=== PATIENT | female | born 1995 ===

== ENCOUNTER 2017-01-15 22:32 | Inpatient (IN) | payer SELFPAY ==
[2017-01-15 23:39] VITALS: BMI 26.5
[2017-01-16] MEDS ORDERED: Sodium Chloride 0.9% 1,000 ML IV STA (00:27)
[2017-01-16] MEDS ORDERED: Ampicillin/Sulbactam 3 GM in Sodium Chloride 0.9% 100 ML IVPB STA (00:28)
[2017-01-16] MEDS ORDERED: Vancomycin 500 mg Inj IVPB STA (00:28)
[2017-01-16] MEDS ORDERED: Morphine 4 mg/ml ISec IVP STA ×2 (00:29→01:36)
[2017-01-16] MEDS ORDERED: Vancomycin 1gm in NS 250ml 1 GM/250 ML BAG IVPB STA (00:35)
[2017-01-16 00:44] LABS: ADD MANUAL DIFF? NO
[2017-01-16 00:52] LABS: BASO # 0.03 K/mm3 (0.0-2.0); BASO % 0.2 % (0.0-3.0); EOS # 0.3 (0.0-0.7); EOS % 1.3 % (1.5-5.0); GRAN # 15.61 (1.4-6.5); GRAN % 83.4 % (50.0-68.0); HEMATOCRIT 35.6 % (36.0-48.0); LYMPH # 1.6 (1.2-3.4); LYMPH % 8.7 % (22.0-35.0); MEAN CORPUSCULAR HEMOGLOBIN 28.9 pg (25.0-35.0); MEAN CORPUSCULAR HGB CONC 33.1 g/dl (31.0-37.0); MEAN PLATELET VOLUME 9.3 fl (7.0-11.0); MONO # 1.2 (0.1-0.6); MONO % 6.4 % (1.0-6.0); PLATELET COUNT 371 10^3/uL (120.0-450.0); WHITE BLOOD COUNT 18.7 10^3/ul (4.5-11.0)
[2017-01-16 00:57] LABS: ALB/GLOB RATIO 1.1 (1.1-1.8); ALKALINE PHOSPHATASE 63 U/L (38-133); ALT/SGPT 23 U/L (7-56); AST/SGOT 27 U/L (15-39); BILIRUBIN,TOTAL 0.5 mg/dL (0.2-1.3); BLOOD UREA NITROGEN 9 mg/dL (7-21); CARBON DIOXIDE 29 mmol/L (21-33); CHLORIDE 102 mmol/L (98-107); GFR AFRICAN-AMERICAN > 60; GLUCOSE,RANDOM 99 mg/dL (70-110); POTASSIUM 3.8 mmol/L (3.6-5.0); SODIUM 138 mmol/L (132-148); TOTAL PROTEIN 7.1 g/dL (5.8-8.3)
--- NOTE | 2017-01-16 01:01 | ED PDOC ---
Arrival/HPI - General Chief Complaint: Breast Problem Time Seen by Provider: 01/16/17 00:27 Historian: Patient - History of Present Illness Narrative History of Present Illness (Text): 01/16/17 01:04 A 21 year old female presents to the emergency department complaining of right breast pain since last week. Patient notes an infection of right breast and pus after draining it. Patient also notes swelling of breast yesterday. Patient reports a subjective fever and taking ibuprofen around 6 in the morning. Patient denies any other complaints at this time. PMD: None Time/Duration: 1 week Symptom Onset: Sudden Symptom Course: Unchanged Activities at Onset: Rest Context: Home Past Medical History - Provider Review Nursing Documentation Reviewed: Yes - Psychiatric Hx Substance Use: No - Anesthesia Hx Anesthesia: No Family/Social History - Physician Review Nursing Documentation Reviewed: Yes Family/Social History: No Known Family HX Smoking Status: Never Smoked Hx Alcohol Use: No Hx Substance Use: No Allergies/Home Meds Allergies/Adverse Reactions: Allergies No Known Allergies Allergy (Verified 01/15/17 23:39) Home Medications: Home Meds Medication Instructions Recorded Confirmed No Known Home Med 01/15/17 01/15/17 Review of Systems - Physician Review All systems were reviewed & negative as marked: Yes - Review of Systems Constitutional: Fevers (subjective) Skin: Other (infection of R breast) Physical Exam Vital Signs Reviewed: Yes Vital Signs Temp Pulse Resp BP Pulse Ox 01/16/17 00:51 102/55 L 01/15/17 23:39 98.5 F 94 H 16 110/76 98 Temperature: Afebrile Blood Pressure: Normal Pulse: Regular Respiratory Rate: Normal Appearance: Positive for: Well-Appearing, Non-Toxic, Comfortable Pain Distress: None Mental Status: Positive for: Alert and Oriented X 3 - Systems Exam Head: Present: Atraumatic, Normocephalic Pupils: Present: PERRL Extroacular Muscles: Present: EOMI Conjunctiva: Present: Normal Mouth: Present: Moist Mucous Membranes Neck: Present: Normal Range of Motion Respiratory/Chest: Present: Clear to Auscultation, Good Air Exchange. No: Respiratory Distress, Accessory Muscle Use Cardiovascular: Present: Regular Rate and Rhythm, Normal S1, S2. No: Murmurs Abdomen: Present: Normal Bowel Sounds. No: Tenderness, Distention, Peritoneal Signs Breast/Axillary: Present: Erythema, Fluctuance ( fluctuance over lateral portion of areola and nipple), Other (warmth; induration of R anterolateral breast nipple; bilateral nipple piercings) Back: Present: Normal Inspection Upper Extremity: Present: Normal Inspection. No: Cyanosis, Edema Lower Extremity: Present: Normal Inspection. No: Edema Neurological: Present: GCS=15, CN II-XII Intact, Speech Normal Skin: Present: Warm, Dry, Normal Color. No: Rashes Psychiatric: Present: Alert, Oriented x 3, Normal Insight, Normal Concentration Medical Decision Making - Lab Interpretations Lab Results: 01/16/17 00:27 Lab Results 01/16/17 00:27: WBC 18.7 H, RBC 4.09, Hgb 11.8 L, Hct 35.6 L, MCV 87.0, MCH 28.9 , MCHC 33.1, RDW 13.0, Plt Count 371, MPV 9.3, Gran % 83.4 H, Lymph % (Auto) 8.7 L, [place] % (Auto) 6.4 H, Eos % (Auto) 1.3 L, Baso % (Auto) 0.2, Gran # 15.61 H, Lymph # 1.6, [place] # 1.2 H, Eos # 0.3, Baso # 0.03 I have reviewed the lab results: Yes - Medication Orders Current Medication Orders: Sodium Chloride (Sodium Chloride 0.9%) 1,000 mls @ 999 mls/hr IV .Q1H1M STA Stop: 01/16/17 01:27 Last Admin: 01/16/17 00:40 Dose: 999 mls/hr Ampicillin Sodium/Sulbactam (Sodium 3 gm/ Sodium Chloride) 100 mls @ 100 mls/ hr IVPB STAT STA PRN Reason: Protocol Stop: 01/16/17 01:27 Vancomycin HCl (Vancomycin 1gm) 1 gm in 250 mls @ 167 mls/hr IVPB STAT STA Stop: 01/16/17 02:04 Discontinued Medications Morphine Sulfate (Morphine) 4 mg IVP STAT STA Stop: 01/16/17 00:30 Last Admin: 01/16/17 00:48 Dose: 4 mg - Scribe Statement The provider has reviewed the documentation as recorded by the Ramona Zapata Provider Scribe Attestation: All medical record entries made by the Scribe were at my direction and personally dictated by me. I have reviewed the chart and agree that the record accurately reflects my personal performance of the history, physical exam, medical decision making, and the department course for this patient. I have also personally directed, reviewed, and agree with the discharge instructions and disposition. Disposition/Present on Arrival - Present on Arrival History of DVT/PE: No History of Uncontrolled Diabetes: No Urinary Catheter: No History of Decub. Ulcer: No History Surgical Site Infection Following: None - Disposition
[2017-01-16] MEDS ORDERED: Albuterol 0.083% Inhal Sol (2.5 mg/3 mL) UD IH PRN (01:35)
[2017-01-16] MEDS ORDERED: Vancomycin 1 g Inj IVPB SCH (01:45)
--- NOTE | 2017-01-16 02:05 | CP.PCM.HP ---
Addendum entered and electronically signed by Noé Nevarez DO 01/16/17 02:19: urine drug screen was ordered after the patient was given 8mg of Morphine in the ER; might be false positive because of that Original Note: <Noé Nevarez - Last Filed: 01/16/17 02:02> History of Present Illness - History of Present Illness History of Present Illness: CC: R Breast Pain This patient is a 21yo F w/ no PMHx who is coming in for a 1d history of R breast pain, with pus draining out. The patient is complaining of a tactile fever, with no other symptoms. breast is exquisitely tender to the touch and even clothing that touches it hurts it. She denies current fevers/chills, DAY, CP , SOB, abdominal pain, N/V/D, dysuria/freq/urg, or lower extremity pain/ swelling. PMhx: None Surg: None Meds: None FamHx: Mom DM, Grandmother with breast and cervical cancer Social: Denies illicit drug use, R nipple piercing years ago, occasional EtOH, not in college, working Allergies: denies Present on Admission - Present on Admission Any Indicators Present on Admission: No History of DVT/PE: No History of Uncontrolled Diabetes: No Urinary Catheter: No Decubitus Ulcer Present: No Past Patient History - Past Social History Smoking Status: Never Smoked - PSYCHIATRIC Hx Substance Use: No - SURGICAL HISTORY Hx Surgeries: No - ANESTHESIA Hx Anesthesia: No Meds Allergies/Adverse Reactions: Allergies Allergy/AdvReac Type Severity Reaction Status Date / Time No Known Allergies Allergy Verified 01/15/17 23:39 Physical Exam - Constitutional Appears: Non-toxic - Head Exam Head Exam: ATRAUMATIC - Eye Exam Eye Exam: EOMI Pupil Exam: PERRL - ENT Exam ENT Exam: Mucous Membranes Moist - Neck Exam Neck exam: Positive for: Full Rom. Negative for: Lymphadenopathy - Respiratory Exam Respiratory Exam: Clear to Auscultation Bilateral, Rales, Rhonchi, Wheezes, NORMAL BREATHING PATTERN Additional comments: W/ female nurse present breast was examined; esquisitely tender to the touch with dried pus on the nipple; nipple piercing on the right, hard and red, skin is extremely tense, could not feel any discrete abscess, however skin is hard to the touch - Cardiovascular Exam Cardiovascular Exam: REGULAR RHYTHM, +S1, +S2 - GI/Abdominal Exam GI & Abdominal Exam: Normal Bowel Sounds, Soft. absent: Tenderness - Rectal Exam Rectal Exam: Deferred - Extremities Exam Extremities exam: Positive for: full ROM, normal inspection. Negative for: calf tenderness, pedal edema, tenderness - Back Exam Back exam: NORMAL INSPECTION. absent: CVA tenderness (L), CVA tenderness (R) - Neurological Exam Neurological exam: Alert, Normal Gait, Oriented x3 - Psychiatric Exam Psychiatric exam: Normal Affect - Skin Skin Exam: Warm Results - Vital Signs Recent Vital Signs: Last Vital Signs Temp 98.5 F 01/15/17 23:39 Pulse 94 H 01/15/17 23:39 Resp 16 01/15/17 23:39 BP 102/55 L 01/16/17 00:51 Pulse Ox 98 01/15/17 23:39 - Labs Result Diagrams: 01/16/17 00:27 01/16/17 00:27 Assessment & Plan - Assessment and Plan (Free Text) Assessment: 21yo F admitted for sepsis 2/2 breast abscess/mastitis Sepsis 2/2 to Breast Abscess/Cellulitis -Breast ultrasound ordered; f/u results -Surgical Consult: Dr. Shields placed; appreciate recs -IV Vanco and Unasyn -Elevated WBC, tachycardia, obvious sign of infection -fluids given -f/u VBG lactate Prophylaxis Heart healthy diet SCD pepcid Case Discussed w/ Dr. Fadi Nevarez PGY1 Night Float Decision To Admit - Pt Status Changed To: Hospital Disposition Of: Inpatient Admission - Admit Certification Admit to Inpatient:: After my assessment, the patient will require hospitalization for at least two midnights. This is because of the severity of symptoms shown, intensity of services needed, and/or the medical risk in this patient being treated as an outpatient. - . Bed Request Type: Med/Surg Admitting Physician: Greg Aponte <Greg Aponte - Last Filed: 01/16/17 03:16> Results - Vital Signs Recent Vital Signs: Last Vital Signs Temp 98.5 F 01/15/17 23:39 Pulse 86 01/16/17 03:14 Resp 18 01/16/17 03:14 BP 104/71 01/16/17 03:14 Pulse Ox 98 01/16/17 03:14 - Labs Result Diagrams: 01/16/17 00:27 01/16/17 00:27 Labs: Laboratory Results - last 24 hr 01/16/17 01/16/17 01:40 01:40 Urine Color Yellow Urine Appearance Sl cloudy Urine pH 6.5 Ur Specific [place] 1.025 Urine Protein Trace H Urine Glucose (UA) Negative Urine Ketones Negative Urine Blood Negative Urine Nitrate Negative Urine Bilirubin Negative Urine Urobilinogen 1.0 H Ur Leukocyte Esterase Trace H Urine RBC 2 - 5 Urine WBC 1 - 3 Ur Epithelial Cells 6 - 8 Amorphous Sediment Moderate Urine Bacteria Large Urine Opiates Screen Negative Urine Methadone Screen Negative Ur Barbiturates Screen Negative Ur Phencyclidine Scrn Negative Ur Amphetamines Screen Negative U Benzodiazepines Scrn Negative U Oth Cocaine Metabols Negative U Cannabinoids Screen Negative Attending/Attestation - Attestation I have personally seen and examined this patient.: Yes I have fully participated in the care of the patient.: Yes I have reviewed all pertinent clinical information: Yes Notes (Text): 01/16/17 03:15 Patient was examined in room # 11 in the ER in presence of nurse Gaiens. Agree with history ,physical examination, assessment and plan. Gives history of anemia as a child.
[2017-01-16] MEDS: Sodium Chloride 0.9% 1,000 ML IV SCH ×2 (02:07→12:55)
[2017-01-16 02:10] LABS: PH,URINE 6.5 (4.7-8.0); URINE BILIRUBIN NEGATIVE (NEGATIVE); URINE BLOOD NEGATIVE (NEGATIVE); URINE GLUCOSE (UA) NEGATIVE (NEGATIVE); URINE KETONE NEGATIVE (NEGATIVE); URINE LEUKOCYTE ESTERASE TRACE Leu/uL (NEGATIVE); URINE PROTEIN TRACE mg/dL (<30 mg/dL)
[2017-01-16 02:11] LABS: URINE APPEARANCE SL CLOUDY (CLEAR); URINE COLOR YELLOW (YELLOW)
[2017-01-16] MEDS: Morphine 4 mg/ml ISec IVP ONE ×2 (02:11→03:07)
[2017-01-16 02:23] LABS: URINE AMORPHOUS SEDIMENT MODERATE; URINE BACTERIA LARGE (NEG)
--- NOTE | 2017-01-16 03:26 | CP.PCM.CON ---
History of Present Illness - History of Present Illness History of Present Illness: General Surgery Consult Re: R Breast cellulitis with draining abscess HPI: 21F presented to the ED c/o R breast pain, swelling, and draining pus x 1 day. + subjective fever. She had a smaller swelling just under the nipple 1 week ago but it popped and she expressed the pus from it and it improved until yesterday. She has never had any issues prior to this. She had her R nipple pierced ~4 years ago. Denies current F/C, SOB, abd pain, N/V/D/C, or dysuria. PMH: Denies PSH: Denies SH: No tobacco or drug use. Occasional EtOH All: NKDA Meds: Denies Review of Systems - Review of Systems All systems: reviewed and no additional remarkable complaints except (as per HPI ) Past Patient History - Past Social History Smoking Status: Never Smoked - PSYCHIATRIC Hx Substance Use: No - SURGICAL HISTORY Hx Surgeries: No - ANESTHESIA Hx Anesthesia: No Meds Allergies/Adverse Reactions: Allergies Allergy/AdvReac Type Severity Reaction Status Date / Time No Known Allergies Allergy Verified 01/15/17 23:39 - Medications Medications: Current Medications Acetaminophen (Tylenol 325mg Tab) 650 mg PO Q6H PRN PRN Reason: Fever >100.4 F Albuterol Sulfate (Albuterol 0.083% Inhal Yuridia (2.5 Mg/3 Ml) Ud) 2.5 mg IH Q2H PRN PRN Reason: Shortness of Breath Famotidine (Pepcid) 20 mg PO BID [facility] Sodium Chloride (Sodium Chloride 0.9%) 1,000 mls @ 100 mls/hr IV .Q10H [facility] Last Admin: 01/16/17 02:07 Dose: 100 mls/hr Vancomycin HCl (Vancomycin 1gm) 1 gm in 250 mls @ 167 mls/hr IVPB Q24H [facility] Ampicillin Sodium/Sulbactam Sodium (Unasyn 1 Gm-0.5 Gm) 1 gm in 100 mls @ 100 mls/hr IVPB Q8H [facility] PRN Reason: Protocol Last Admin: 01/16/17 02:14 Dose: Not Given Ibuprofen (Motrin Tab) 600 mg PO Q6H PRN PRN Reason: Pain, Mild (1-3) Ondansetron HCl (Zofran Inj) 8 mg IVP Q8H PRN PRN Reason: Nausea/Vomiting Physical Exam - Constitutional Appears: Non-toxic, No Acute Distress - Head Exam Head Exam: ATRAUMATIC, NORMOCEPHALIC - Eye Exam Eye Exam: EOMI. absent: Scleral icterus - ENT Exam ENT Exam: Mucous Membranes Moist Additional comments: trachea midline - Neck Exam Neck exam: Positive for: Full Rom - Respiratory Exam Respiratory Exam: NORMAL BREATHING PATTERN. absent: Respiratory Distress Additional comments: R Breast: nipple and surrounding area of TTP with erythema ~12cm. dependent portion of breast with more edema. + induration. No expressed pus due to TTP. Nipple piercing. small hole in the areolar tissue with small amount of dry pus. - Cardiovascular Exam Cardiovascular Exam: RRR, +S1, +S2 - GI/Abdominal Exam GI & Abdominal Exam: Soft. absent: Distended - Rectal Exam Rectal Exam: Deferred - Extremities Exam Extremities exam: Positive for: normal capillary refill. Negative for: calf tenderness, pedal edema - Back Exam Back exam: absent: CVA tenderness (L), CVA tenderness (R) - Neurological Exam Neurological exam: Alert, Oriented x3 - Psychiatric Exam Psychiatric exam: Normal Affect, Normal Mood - Skin Skin Exam: Dry, Warm Results - Vital Signs Recent Vital Signs: Last Vital Signs Temp 98.5 F 01/15/17 23:39 Pulse 86 01/16/17 03:14 Resp 18 01/16/17 03:14 BP 104/71 01/16/17 03:14 Pulse Ox 98 01/16/17 03:14 - Labs Result Diagrams: 01/16/17 00:27 01/16/17 00:27 Labs: Laboratory Results - last 24 hr 01/16/17 01/16/17 01:40 01:40 Urine Color Yellow Urine Appearance Sl cloudy Urine pH 6.5 Ur Specific [place] 1.025 Urine Protein Trace H Urine Glucose (UA) Negative Urine Ketones Negative Urine Blood Negative Urine Nitrate Negative Urine Bilirubin Negative Urine Urobilinogen 1.0 H Ur Leukocyte Esterase Trace H Urine RBC 2 - 5 Urine WBC 1 - 3 Ur Epithelial Cells 6 - 8 Amorphous Sediment Moderate Urine Bacteria Large Urine Opiates Screen Negative Urine Methadone Screen Negative Ur Barbiturates Screen Negative Ur Phencyclidine Scrn Negative Ur Amphetamines Screen Negative U Benzodiazepines Scrn Negative U Oth Cocaine Metabols Negative U Cannabinoids Screen Negative - Imaging and Cardiology US - breast Status: Image reviewed by me Assessment & Plan - Assessment and Plan (Free Text) Assessment: 21F with R breast cellulitis and abscess Plan: IV abx Analgesia F/U R breast US Warm Compress to R breast Will D/W Dr. Cornelius Sevilla PGY3
--- NOTE | 2017-01-16 04:14 | US ---
EXAM: US Right Breast Complete CLINICAL HISTORY: 21 years old, female; Pain; Breast pain; Right; Additional info: Swelling/abscess TECHNIQUE: Static sonographic images of the right breast with image documentation utilizing a linear transducer. Imaging was obtained in all four quadrants, retroareolar region, and the axillae. EXAM DATE/TIME: 01/16/2017 2:00 AM COMPARISON: No relevant prior studies available. FINDINGS: There is a 4.8 x 2.2 x 4.7 cm hypoechoic heterogeneous structure at 9:00 at the areola. There is some vascularity demonstrated peripherally although no significant flow internally. The central avascularity is a finding typically seen with hematoma or abscess. The peripheral flow favors the latter. IMPRESSION: Heterogeneous hypoechoic structure at the areola 9:00 with vascularity pattern suggesting abscess however followup is recommended to ensure complete resolution.
[2017-01-16 04:55] VITALS: RESP 20
[2017-01-16 07:29] LABS: ADD MANUAL DIFF? NO
[2017-01-16 07:32] LABS: BASO # 0.02 K/mm3 (0.0-2.0); BASO % 0.1 % (0.0-3.0); EOS # 0.3 (0.0-0.7); EOS % 1.8 % (1.5-5.0); GRAN # 14.05 (1.4-6.5); HEMATOCRIT 35.5 % (36.0-48.0); LYMPH % 11.6 % (22.0-35.0); MEAN CORPUSCULAR HEMOGLOBIN 28.4 pg (25.0-35.0); MEAN CORPUSCULAR HGB CONC 32.7 g/dl (31.0-37.0); MEAN PLATELET VOLUME 9.6 fl (7.0-11.0); MONO % 5.5 % (1.0-6.0); PLATELET COUNT 372 10^3/uL (120.0-450.0); RED CELL DISTRIBUTION WIDTH 13.1 % (11.5-14.5); WHITE BLOOD COUNT 17.3 10^3/ul (4.5-11.0)
[2017-01-16 07:44] LABS: ALB/GLOB RATIO 1.1 (1.1-1.8); ALKALINE PHOSPHATASE 60 U/L (38-133); ALT/SGPT 23 U/L (7-56); AST/SGOT 38 U/L (15-39); BILIRUBIN,TOTAL 0.4 mg/dL (0.2-1.3); BLOOD UREA NITROGEN 7 mg/dL (7-21); CALCIUM 8.5 mg/dL (8.4-10.5); CARBON DIOXIDE 26 mmol/L (21-33); CHLORIDE 106 mmol/L (98-107); CHOLESTEROL 76 mg/dL (130-200); GFR AFRICAN-AMERICAN > 60; GLUCOSE,RANDOM 101 mg/dL (70-110); POTASSIUM 3.6 mmol/L (3.6-5.0); SODIUM 141 mmol/L (132-148); TOTAL PROTEIN 6.7 g/dL (5.8-8.3)
[2017-01-16 08:28] LABS: IRON < 10 ug/dL (45-180)
[2017-01-16] MEDS ORDERED: Propofol 10 mg/ml Inj (20 ML) ONE (09:14)
[2017-01-16] MEDS ORDERED: Lidocaine 2% Inj (20ml) ONE (09:14)
[2017-01-16] MEDS ORDERED: Midazolam 2 MG/2 ML VIAL ONE (09:14)
[2017-01-16] MEDS ORDERED: Lactated Ringer's 1,000 ML IV SCH (09:59)
[2017-01-16] MEDS ORDERED: HYDROmorphone 0.5 mg/0.5 ml ISec IVP PRN ×2 (09:59→10:01)
--- NOTE | 2017-01-16 09:59 | PCM.SURG1 ---
Surgeon's Initial Post Op Note - Surgeon's Notes Surgeon: Dr. Shields Sales Ledger Clerk: Marsha Monte PGY1 Type of Anesthesia: General Endo Anesthesia Administered By: Anshu Pre-Operative Diagnosis: Right breast abscess Operative Findings: same Post-Operative Diagnosis: same Operation Performed: Incision and drainage of Right breast abscess Specimen/Specimens Removed: abscess 50cc Estimated Blood Loss: EBL {In ML}: 10 Blood Products Given: N/A Drains Used: No Drains Post-Op Condition: Good Date of Surgery/Procedure: 01/16/17 Time of Surgery/Procedure: 09:59
[2017-01-16] MEDS ORDERED: Oxycodone/Acetaminophen 2.5/325 mg Tab PO PRN (10:01)
[2017-01-16] MEDS: Vancomycin 1gm in NS 250ml 1 GM/250 ML BAG IVPB SCH ×2 (11:54→21:31)
[2017-01-16 12:15] LABS: FOLATE 9.4 ng/mL
--- NOTE | 2017-01-16 15:53 | CP.PCM.CON ---
History of Present Illness - History of Present Illness History of Present Illness: 21 year old female with no significant past medical history came complaining of pain and swelling on her right breast associated with drainage of pus. She noted some swelling a few days ago and noted some pus coming out, then the swelling got worse. She denies specific trauma, no animal contacts or insect bites, no fever or chills, no nausea or vomiting, no headache or dizziness, no SOB, no cough or colds, no diarrhea, no dysuria. Yesterday, I and D was done and pus was sent for cultures. Infectious Diseases consult is requested for antibiotic management. Review of Systems - Review of Systems All systems: reviewed and no additional remarkable complaints except (as per HPI ) Past Patient History - Past Social History Smoking Status: Never Smoked - CARDIAC Hx Cardiac Disorders: No - PULMONARY Hx Respiratory Disorders: No - NEUROLOGICAL Hx Neurological Disorder: No - HEENT Hx HEENT Problems: No - RENAL Hx Chronic Kidney Disease: No - ENDOCRINE/METABOLIC Hx Endocrine Disorders: No - HEMATOLOGICAL/ONCOLOGICAL Hx Blood Transfusions: No Hx Blood Transfusion Reaction: No - INTEGUMENTARY Hx Dermatological Problems: No - MUSCULOSKELETAL/RHEUMATOLOGICAL Hx Musculoskeletal Disorders: No Hx Falls: No - GASTROINTESTINAL Hx Gastrointestinal Disorders: No - GENITOURINARY/GYNECOLOGICAL Hx Genitourinary Disorders: No - PSYCHIATRIC Hx Psychophysiologic Disorder: No - SURGICAL HISTORY Hx Surgeries: No - ANESTHESIA Hx Anesthesia Reactions: No Hx Malignant Hyperthermia: No Meds Allergies/Adverse Reactions: Allergies Allergy/AdvReac Type Severity Reaction Status Date / Time No Known Allergies Allergy Verified 01/15/17 23:39 - Medications Medications: Current Medications Acetaminophen (Tylenol 325mg Tab) 650 mg PO Q6H PRN PRN Reason: Fever >100.4 F Albuterol Sulfate (Albuterol 0.083% Inhal Yuridia (2.5 Mg/3 Ml) Ud) 2.5 mg IH Q2H PRN PRN Reason: Shortness of Breath Famotidine (Pepcid) 20 mg PO BID [facility] Sodium Chloride (Sodium Chloride 0.9%) 1,000 mls @ 100 mls/hr IV .Q10H [facility] Last Admin: 01/16/17 02:07 Dose: 100 mls/hr Vancomycin HCl (Vancomycin 1gm) 1 gm in 250 mls @ 167 mls/hr IVPB Q12 [facility] PRN Reason: Protocol Ampicillin Sodium/Sulbactam Sodium (Unasyn 1 Gm-0.5 Gm) 1 gm in 100 mls @ 100 mls/hr IVPB Q6 [facility] PRN Reason: Protocol Ibuprofen (Motrin Tab) 600 mg PO Q6H PRN PRN Reason: Pain, Mild (1-3) Ondansetron HCl (Zofran Inj) 8 mg IVP Q8H PRN PRN Reason: Nausea/Vomiting Physical Exam - Constitutional Appears: Non-toxic, No Acute Distress - Head Exam Head Exam: NORMAL INSPECTION - ENT Exam ENT Exam: Mucous Membranes Moist - Neck Exam Neck exam: Negative for: Lymphadenopathy, Meningismus - Respiratory Exam Respiratory Exam: Decreased Breath Sounds - Cardiovascular Exam Cardiovascular Exam: +S1, +S2 - GI/Abdominal Exam GI & Abdominal Exam: Soft. absent: Tenderness Results - Vital Signs Recent Vital Signs: Last Vital Signs Temp 98.2 F 01/16/17 07:51 Pulse 84 01/16/17 07:51 Resp 20 01/16/17 07:51 BP 120/80 01/16/17 07:51 Pulse Ox 97 01/16/17 07:51 - Labs Result Diagrams: 01/16/17 07:00 01/16/17 07:00 Labs: Laboratory Results - last 24 hr 01/16/17 01/16/17 01/16/17 01:40 01:40 07:00 WBC 17.3 H RBC 4.08 Hgb 11.6 L Hct 35.5 L MCV 87.0 MCH 28.4 MCHC 32.7 RDW 13.1 Plt Count 372 MPV 9.6 Gran % 81.0 H Lymph % (Auto) 11.6 L [place] % (Auto) 5.5 Eos % (Auto) 1.8 Baso % (Auto) 0.1 Gran # 14.05 H Lymph # 2.0 [place] # 1.0 H Eos # 0.3 Baso # 0.02 Sodium Potassium Chloride Carbon Dioxide Anion Gap BUN Creatinine Est GFR ( Amer) Est GFR (Non-Af Amer) Random Glucose Calcium Total Bilirubin AST ALT Alkaline Phosphatase Total Protein Albumin Globulin Albumin/Globulin Ratio Triglycerides Cholesterol HDL Cholesterol Urine Color Yellow Urine Appearance Sl cloudy Urine pH 6.5 Ur Specific [place] 1.025 Urine Protein Trace H Urine Glucose (UA) Negative Urine Ketones Negative Urine Blood Negative Urine Nitrate Negative Urine Bilirubin Negative Urine Urobilinogen 1.0 H Ur Leukocyte Esterase Trace H Urine RBC 2 - 5 Urine WBC 1 - 3 Ur Epithelial Cells 6 - 8 Amorphous Sediment Moderate Urine Bacteria Large Urine Opiates Screen Negative Urine Methadone Screen Negative Ur Barbiturates Screen Negative Ur Phencyclidine Scrn Negative Ur Amphetamines Screen Negative U Benzodiazepines Scrn Negative U Oth Cocaine Metabols Negative U Cannabinoids Screen Negative 01/16/17 07:00 WBC RBC Hgb Hct MCV MCH MCHC RDW Plt Count MPV Gran % Lymph % (Auto) [place] % (Auto) Eos % (Auto) Baso % (Auto) Gran # Lymph # [place] # Eos # Baso # Sodium 141 Potassium 3.6 Chloride 106 Carbon Dioxide 26 Anion Gap 13 BUN 7 Creatinine 0.6 Est GFR ( Amer) > 60 Est GFR (Non-Af Amer) > 60 Random Glucose 101 Calcium 8.5 Total Bilirubin 0.4 AST 38 ALT 23 Alkaline Phosphatase 60 Total Protein 6.7 Albumin 3.4 Globulin 3.2 Albumin/Globulin Ratio 1.1 Triglycerides 31 L Cholesterol 76 L HDL Cholesterol 30 Urine Color Urine Appearance Urine pH Ur Specific [place] Urine Protein Urine Glucose (UA) Urine Ketones Urine Blood Urine Nitrate Urine Bilirubin Urine Urobilinogen Ur Leukocyte Esterase Urine RBC Urine WBC Ur Epithelial Cells Amorphous Sediment Urine Bacteria Urine Opiates Screen Urine Methadone Screen Ur Barbiturates Screen Ur Phencyclidine Scrn Ur Amphetamines Screen U Benzodiazepines Scrn U Oth Cocaine Metabols U Cannabinoids Screen Assessment & Plan - Assessment and Plan (Free Text) Plan: Assesssment Sepsis due to right breast breast abscess S/P I and D POD #1 Plan started patient on Vancomycin and Unasyn pending blood and wound cx will get HIV test because of the patient's age will monitor clinically discussed with Dr. Lopez
[2017-01-17] MEDS ORDERED: Vancomycin 1gm in NS 250ml IVPB SCH (02:00)
[2017-01-17] MEDS: Sodium Chloride 0.9% 1,000 ML IV SCH (03:25)
[2017-01-17 08:01] LABS: ADD MANUAL DIFF? NO
[2017-01-17 08:02] VITALS: TEMP 98.4
[2017-01-17 08:14] LABS: BASO # 0.03 K/mm3 (0.0-2.0); BASO % 0.2 % (0.0-3.0); EOS # 0.2 (0.0-0.7); EOS % 1.9 % (1.5-5.0); GRAN # 9.96 (1.4-6.5); GRAN % 79.3 % (50.0-68.0); HEMATOCRIT 33.5 % (36.0-48.0); LYMPH # 1.7 (1.2-3.4); LYMPH % 13.2 % (22.0-35.0); MEAN CELL VOLUME 86.8 fL (80.0-105.0); MEAN CORPUSCULAR HEMOGLOBIN 28.5 pg (25.0-35.0); MEAN CORPUSCULAR HGB CONC 32.8 g/dl (31.0-37.0); MEAN PLATELET VOLUME 9.4 fl (7.0-11.0); MONO # 0.7 (0.1-0.6); MONO % 5.4 % (1.0-6.0); PLATELET COUNT 372 10^3/uL (120.0-450.0); WHITE BLOOD COUNT 12.6 10^3/ul (4.5-11.0)
[2017-01-17 08:20] LABS: ALKALINE PHOSPHATASE 60 U/L (38-133); ALT/SGPT 24 U/L (7-56); AST/SGOT 27 U/L (15-39); BILIRUBIN,TOTAL 0.6 mg/dL (0.2-1.3); BLOOD UREA NITROGEN 4 mg/dL (7-21); CALCIUM 8.7 mg/dL (8.4-10.5); CARBON DIOXIDE 27 mmol/L (21-33); CHLORIDE 105 mmol/L (98-107); GFR AFRICAN-AMERICAN > 60; GLUCOSE,RANDOM 82 mg/dL (70-110); POTASSIUM 3.4 mmol/L (3.6-5.0); SODIUM 139 mmol/L (132-148); TOTAL PROTEIN 6.5 g/dL (5.8-8.3)
[2017-01-17] MEDS ORDERED: Potassium Chloride 20 mEq ER Tab PO ONE (08:29)
--- NOTE | 2017-01-17 08:33 | CP.PCM.PN ---
Subjective - Date & Time of Evaluation Date of Evaluation: 01/17/17 Time of Evaluation: 08:30 - Subjective Subjective: Surgery for Dr. Shields Pt s&e. PT underwent I & D of R breast yesterday. TOlerated it well. Dressing changed this AM. No bleeding. Tolerating diet. + amb. + void. Denies F/C/n/V/D/ Cp/SOB. Pain controlled. Objective - Vital Signs/Intake and Output Vital Signs (last 24 hours): Temp Pulse Resp BP Pulse Ox 98.4 F 73 20 99/59 L 98 01/17/17 08:01 01/17/17 08:01 01/17/17 08:01 01/17/17 08:01 01/17/17 08:01 Intake and Output: 01/17/17 01/17/17 06:59 18:59 Intake Total 2200 Balance 2200 - Medications Medications: Current Medications Acetaminophen (Tylenol 325mg Tab) 650 mg PO Q6H PRN PRN Reason: Fever >100.4 F Albuterol Sulfate (Albuterol 0.083% Inhal Yuridia (2.5 Mg/3 Ml) Ud) 2.5 mg IH Q2H PRN PRN Reason: Shortness of Breath Famotidine (Pepcid) 20 mg PO BID [facility] Last Admin: 01/16/17 19:33 Dose: 20 mg Hydromorphone HCl (Dilaudid) 0.5 mg IVP Q4H PRN PRN Reason: Pain, severe (8-10) Sodium Chloride (Sodium Chloride 0.9%) 1,000 mls @ 100 mls/hr IV .Q10H [facility] Last Admin: 01/17/17 03:25 Dose: 100 mls/hr Vancomycin HCl (Vancomycin 1gm) 1 gm in 250 mls @ 167 mls/hr IVPB Q12 [facility] PRN Reason: Protocol Last Admin: 01/16/17 21:31 Dose: 167 mls/hr Ampicillin Sodium/Sulbactam Sodium (Unasyn 1 Gm-0.5 Gm) 1 gm in 100 mls @ 100 mls/hr IVPB Q6 [facility] PRN Reason: Protocol Last Admin: 01/17/17 05:06 Dose: 100 mls/hr Ibuprofen (Motrin Tab) 600 mg PO Q6H PRN PRN Reason: Pain, Mild (1-3) Ondansetron HCl (Zofran Inj) 8 mg IVP Q8H PRN PRN Reason: Nausea/Vomiting Oxycodone/Acetaminophen (Percocet 2.5/325 Mg Tab) 2 tab PO Q4H PRN PRN Reason: Pain, moderate (4-7) Potassium Chloride (K-Dur 20 Meq Er Tab) 20 meq PO ONCE ONE Stop: 01/17/17 08:30 - Labs Labs: 01/17/17 07:00 01/17/17 07:00 - Constitutional Appears: No Acute Distress - Head Exam Head Exam: ATRAUMATIC, NORMAL INSPECTION, NORMOCEPHALIC - Eye Exam Eye Exam: EOMI, Normal appearance, PERRL Pupil Exam: NORMAL ACCOMODATION, PERRL - ENT Exam ENT Exam: Mucous Membranes Moist, Normal Exam - Neck Exam Neck Exam: Full ROM, Normal Inspection. absent: Lymphadenopathy - Respiratory Exam Respiratory Exam: Clear to Ausculation Bilateral, NORMAL BREATHING PATTERN - Cardiovascular Exam Cardiovascular Exam: REGULAR RHYTHM, +S1, +S2. absent: Murmur - GI/Abdominal Exam GI & Abdominal Exam: Soft, Normal Bowel Sounds. absent: Tenderness - Extremities Exam Extremities Exam: Full ROM, Normal Capillary Refill, Normal Inspection. absent : Joint Swelling, Pedal Edema - Back Exam Back Exam: NORMAL INSPECTION - Neurological Exam Neurological Exam: Alert, Awake, CN II-XII Intact, Normal Gait, Oriented x3 - Psychiatric Exam Psychiatric exam: Normal Affect, Normal Mood - Skin Skin Exam: Erythema, Warm Additional comments: R breast 2cm incision . Packing taken out. Dressing changed. TTP. Erythema improving Assessment and Plan - Assessment and Plan (Free Text) Assessment: POD 1 I & D of R breast for abscess : improving -Dressing change PRN -ABX -WBC trending down -Possibly change ABX to PO to send her home. WIll MOIRA Shields
[2017-01-17] MEDS: Vancomycin 1gm in NS 250ml 1 GM/250 ML BAG IVPB SCH (09:41)
--- NOTE | 2017-01-17 11:55 | CP.PCM.PN ---
<Stephon Herrera - Last Filed: 01/17/17 11:57> Subjective - Date & Time of Evaluation Date of Evaluation: 01/17/17 Time of Evaluation: 11:50 - Subjective Subjective: Medicine progress note. Attending: Dr. Lopez Pt seen and examined at bedside. No acute distress. No events overnight. Pt feeling better, but on verge of leavin AMA. Objective - Vital Signs/Intake and Output Vital Signs (last 24 hours): Temp Pulse Resp BP Pulse Ox 98.4 F 73 20 99/59 L 98 01/17/17 08:01 01/17/17 08:01 01/17/17 08:01 01/17/17 08:01 01/17/17 08:01 Intake and Output: 01/17/17 01/17/17 06:59 18:59 Intake Total 2200 Balance 2200 - Medications Medications: Current Medications Acetaminophen (Tylenol 325mg Tab) 650 mg PO Q6H PRN PRN Reason: Fever >100.4 F Albuterol Sulfate (Albuterol 0.083% Inhal Yuridia (2.5 Mg/3 Ml) Ud) 2.5 mg IH Q2H PRN PRN Reason: Shortness of Breath Famotidine (Pepcid) 20 mg PO BID [facility] Last Admin: 01/17/17 09:37 Dose: 20 mg Hydromorphone HCl (Dilaudid) 0.5 mg IVP Q4H PRN PRN Reason: Pain, severe (8-10) Sodium Chloride (Sodium Chloride 0.9%) 1,000 mls @ 100 mls/hr IV .Q10H [facility] Last Admin: 01/17/17 03:25 Dose: 100 mls/hr Vancomycin HCl (Vancomycin 1gm) 1 gm in 250 mls @ 167 mls/hr IVPB Q12 [facility] PRN Reason: Protocol Last Admin: 01/17/17 09:41 Dose: 167 mls/hr Ampicillin Sodium/Sulbactam Sodium (Unasyn 1 Gm-0.5 Gm) 1 gm in 100 mls @ 100 mls/hr IVPB Q6 [facility] PRN Reason: Protocol Last Admin: 01/17/17 05:06 Dose: 100 mls/hr Ibuprofen (Motrin Tab) 600 mg PO Q6H PRN PRN Reason: Pain, Mild (1-3) Ondansetron HCl (Zofran Inj) 8 mg IVP Q8H PRN PRN Reason: Nausea/Vomiting Oxycodone/Acetaminophen (Percocet 2.5/325 Mg Tab) 2 tab PO Q4H PRN PRN Reason: Pain, moderate (4-7) - Labs Labs: 01/17/17 07:00 01/17/17 07:00 - Constitutional Appears: Non-toxic, No Acute Distress - Head Exam Head Exam: ATRAUMATIC, NORMAL INSPECTION, NORMOCEPHALIC - Eye Exam Eye Exam: EOMI - ENT Exam ENT Exam: Mucous Membranes Moist - Neck Exam Neck Exam: Full ROM, Normal Inspection - Respiratory Exam Respiratory Exam: NORMAL BREATHING PATTERN. absent: Respiratory Distress - Cardiovascular Exam Cardiovascular Exam: +S1, +S2 - GI/Abdominal Exam GI & Abdominal Exam: Soft, Normal Bowel Sounds. absent: Tenderness - Extremities Exam Extremities Exam: Full ROM, Normal Inspection - Back Exam Back Exam: NORMAL INSPECTION - Neurological Exam Neurological Exam: Alert, Awake, Oriented x3 - Psychiatric Exam Psychiatric exam: Normal Affect, Normal Mood - Skin Skin Exam: Dry, Intact, Normal Color, Warm Additional comments: Beast incision, dressing changed. TTP. Minimal erythema. Assessment and Plan - Assessment and Plan (Free Text) Assessment: This is a 21yo female admitted for sepsis 2/2 breast abscess/mastitis Sepsis 2/2 to Breast Abscess/Cellulitis -Breast ultrasound ordered; f/u results -showed abscess on U/S -Surgical Consult: Dr. Shields placed; appreciate recs -pt s/p I/D, dressing changed today, clinically improving. -IV Vanco and Unasyn -f/u anaerobic culture results -f/u sx recs. GI/DVT Prophylaxis Heart healthy diet SCD pepcid discussed with Dr. Lopez <Al Lopez - Last Filed: 01/18/17 08:24> Objective - Vital Signs/Intake and Output Vital Signs (last 24 hours): Temp Pulse Resp BP Pulse Ox 98.4 F 75 20 112/75 96 01/17/17 16:00 01/17/17 16:00 01/17/17 16:00 01/17/17 16:00 01/17/17 16:00 - Labs Labs: 01/17/17 07:00 01/17/17 07:00 Attending/Attestation - Attestation I have personally seen and examined this patient.: Yes I have fully participated in the care of the patient.: Yes I have reviewed all pertinent clinical information, including history, physical exam and plan: Yes Notes (Text): 01/17/17 21 year old female who was admitted for breast cellulitis/abscess. She was started on iv antibiotics and seen by surgery and ID. She is s/p IandD. Cultures were pending. She was examined with female nurse digital strategy director this morning. Packing was removed earlier this morning. She expressed wishes to be discharged home. We explained cutlures were pending. Leukocytosis improved. She reports chronic mild anemia and was advised to follow up with pmd. Potassium was repleted for hypokalemia. She was debating to sign out AMA during the day. After discussion with ID she was written script for augmentin and doxycycline in case she signs out AMA. Apparently she signed out AMA later in the evening (see nursing note and house doctor note). Al Lopez MD Hospitalist.
[2017-01-17 12:10] LABS: FREE T4 1.73 ng/dL (0.78-2.19)
[2017-01-17 12:24] LABS: THYROID STIMULATING HORMONE 0.73 mIU/mL (0.46-4.68)
--- NOTE | 2017-01-17 13:46 | CP.PCM.PN ---
Subjective - Date & Time of Evaluation Date of Evaluation: 01/17/17 Time of Evaluation: 12:15 - Subjective Subjective: Patient is feeling better, no fevers overnight, less pain in the right breast. Objective - Vital Signs/Intake and Output Vital Signs (last 24 hours): Temp Pulse Resp BP Pulse Ox 98.4 F 73 20 99/59 L 98 01/17/17 08:01 01/17/17 08:01 01/17/17 08:01 01/17/17 08:01 01/17/17 08:01 Intake and Output: 01/17/17 01/17/17 06:59 18:59 Intake Total 2200 Balance 2200 - Medications Medications: Current Medications Acetaminophen (Tylenol 325mg Tab) 650 mg PO Q6H PRN PRN Reason: Fever >100.4 F Albuterol Sulfate (Albuterol 0.083% Inhal Yuridia (2.5 Mg/3 Ml) Ud) 2.5 mg IH Q2H PRN PRN Reason: Shortness of Breath Famotidine (Pepcid) 20 mg PO BID [facility] Last Admin: 01/17/17 09:37 Dose: 20 mg Hydromorphone HCl (Dilaudid) 0.5 mg IVP Q4H PRN PRN Reason: Pain, severe (8-10) Sodium Chloride (Sodium Chloride 0.9%) 1,000 mls @ 100 mls/hr IV .Q10H [facility] Last Admin: 01/17/17 03:25 Dose: 100 mls/hr Vancomycin HCl (Vancomycin 1gm) 1 gm in 250 mls @ 167 mls/hr IVPB Q12 [facility] PRN Reason: Protocol Last Admin: 01/17/17 09:41 Dose: 167 mls/hr Ampicillin Sodium/Sulbactam Sodium (Unasyn 1 Gm-0.5 Gm) 1 gm in 100 mls @ 100 mls/hr IVPB Q6 [facility] PRN Reason: Protocol Last Admin: 01/17/17 05:06 Dose: 100 mls/hr Ibuprofen (Motrin Tab) 600 mg PO Q6H PRN PRN Reason: Pain, Mild (1-3) Ondansetron HCl (Zofran Inj) 8 mg IVP Q8H PRN PRN Reason: Nausea/Vomiting Oxycodone/Acetaminophen (Percocet 2.5/325 Mg Tab) 2 tab PO Q4H PRN PRN Reason: Pain, moderate (4-7) - Labs Labs: 01/17/17 07:00 01/17/17 07:00 - Constitutional Appears: Non-toxic, No Acute Distress - Head Exam Head Exam: NORMAL INSPECTION - Neck Exam Neck Exam: absent: Meningismus - Respiratory Exam Respiratory Exam: Decreased Breath Sounds - Cardiovascular Exam Cardiovascular Exam: +S1, +S2 - GI/Abdominal Exam GI & Abdominal Exam: Soft. absent: Tenderness Assessment and Plan - Assessment and Plan (Free Text) Plan: Assesssment Sepsis due to right breast breast abscess S/P I and D POD #2 Plan continue Vancomycin and Unasyn day 2 pending final blood and wound cx will get HIV test because of the patient's age will continue to monitor clinically discussed with Dr. Lopez
[2017-01-17 16:34] VITALS: BP 112/75; PULSE 75; O2SAT 96
--- NOTE | 2017-01-17 19:17 | CP.PCM.PN ---
<Noé Ramsay - Last Filed: 01/17/17 19:15> Subjective - Date & Time of Evaluation Date of Evaluation: 01/17/17 Time of Evaluation: 19:15 - Subjective Subjective: Pt wished to sign out AMA becuase she was mad at the care she was receiving and felt s he did not need to stay AMA form was filled out and patient was advised of possible risks; including , permanent disfugurement, bacteremia, and sepsis The patient had prescriptions for her antibiotics already She was advised to follow up within the week with the surgeon who drained her breast abscess and with the community clinic here for regular health screenings as well All questions were answered. Patients vital signs were stable and patient is competent to sign out AMA Dr. Noé Ramsay PGY1 Night Float Objective - Vital Signs/Intake and Output Vital Signs (last 24 hours): Temp Pulse Resp BP Pulse Ox 98.4 F 75 20 112/75 96 01/17/17 16:00 01/17/17 16:00 01/17/17 16:00 01/17/17 16:00 01/17/17 16:00 Intake and Output: 01/17/17 01/18/17 18:59 06:59 Intake Total 420 Balance 420 - Medications Medications: Current Medications Acetaminophen (Tylenol 325mg Tab) 650 mg PO Q6H PRN PRN Reason: Fever >100.4 F Albuterol Sulfate (Albuterol 0.083% Inhal Yuridia (2.5 Mg/3 Ml) Ud) 2.5 mg IH Q2H PRN PRN Reason: Shortness of Breath Famotidine (Pepcid) 20 mg PO BID [facility] Last Admin: 01/17/17 17:15 Dose: 20 mg Hydromorphone HCl (Dilaudid) 0.5 mg IVP Q4H PRN PRN Reason: Pain, severe (8-10) Sodium Chloride (Sodium Chloride 0.9%) 1,000 mls @ 100 mls/hr IV .Q10H [facility] Last Admin: 01/17/17 03:25 Dose: 100 mls/hr Vancomycin HCl (Vancomycin 1gm) 1 gm in 250 mls @ 167 mls/hr IVPB Q12 [facility] PRN Reason: Protocol Last Admin: 01/17/17 09:41 Dose: 167 mls/hr Ampicillin Sodium/Sulbactam Sodium (Unasyn 1 Gm-0.5 Gm) 1 gm in 100 mls @ 100 mls/hr IVPB Q6 [facility] PRN Reason: Protocol Last Admin: 01/17/17 17:16 Dose: 100 mls/hr Ibuprofen (Motrin Tab) 600 mg PO Q6H PRN PRN Reason: Pain, Mild (1-3) Ondansetron HCl (Zofran Inj) 8 mg IVP Q8H PRN PRN Reason: Nausea/Vomiting Oxycodone/Acetaminophen (Percocet 2.5/325 Mg Tab) 2 tab PO Q4H PRN PRN Reason: Pain, moderate (4-7) - Labs Labs: 01/17/17 07:00 01/17/17 07:00 <Greg Aponte - Last Filed: 01/17/17 20:30> Objective - Vital Signs/Intake and Output Vital Signs (last 24 hours): Temp Pulse Resp BP Pulse Ox 98.4 F 75 20 112/75 96 01/17/17 16:00 01/17/17 16:00 01/17/17 16:00 01/17/17 16:00 01/17/17 16:00 Intake and Output: 01/17/17 01/18/17 18:59 06:59 Intake Total 420 Balance 420 - Labs Labs: 01/17/17 07:00 01/17/17 07:00 Attending/Attestation - Attestation I have personally seen and examined this patient.: No I have fully participated in the care of the patient.: Yes I have reviewed all pertinent clinical information, including history, physical exam and plan: Yes Notes (Text): 01/17/17 20:28 DISCHARGE DIAGNOSIS:Left against medical advice. Non complaint. Breast abscess. Cellulitis breast . Borderline anemia. Leukocytosis.
--- NOTE | 2017-01-18 08:04 | OP ---
PROCEDURE DATE: 01/16/2017 SURGEON: Dr. Shields RECREATION ATTENDANT SUPERVISOR: Dr. Monte ANESTHESIA: General, Dr. Brasher. PREOPERATIVE DIAGNOSIS: Right breast abscess. POSTOPERATIVE DIAGNOSIS: Right breast abscess. PROCEDURE: Incision and drainage of right breast abscess. DESCRIPTION OF OPERATION: With the patient in the supine position under adequate general anesthesia, the right breast was prepped and draped in the usual sterile manner. The patient had a nipple pierc ing which was removed. There was a large fluctuant mass in the lower outer quadrant of the right dory ast and approximately 20 mL of pus was first aspirated from this area. This was sent for culture. I ncision was then made along the areolar margin in the lower outer quadrant and additional purulent fl uid was drained, approximately 50 mL altogether. Loculations were broken up within the cavity and a tissue specimen was taken as well for pathologic examination. The cavity was irrigated and iodoform packing was placed followed by a dry sterile dressing. The patient tolerated the procedure well and transferred to recovery room in stable condition. Estimated blood loss for the procedure was 10 mL. David Shields MD cc: [id number] TT: 01/18/2017 08:04:13 en
--- NOTE | 2017-01-18 13:20 | CP.PCM.DIS ---
<Stephon Herrera - Last Filed: 01/18/17 13:27> Provider - Provider Date of Admission: 01/16/17 01:37 Attending physician: Al Lopez MD Consults: Surgery - Cornelius CURRIE- Mirian Time Spent in preparation of Discharge (in minutes): 45 Hospital Course - Lab Results Lab Results: Micro Results 01/16/17 01:40 Urine Urine Culture - Final Escherichia Coli Enterococcus Faecalis 01/16/17 01:50 Blood-Venous Blood Culture - Preliminary NO GROWTH AFTER 48 HOURS Most Recent Lab Values WBC 12.6 10^3/ul (4.5-11.0) H D 01/17/17 07:00 RBC 3.86 10^6/uL (3.5-6.1) 01/17/17 07:00 Hgb 11.0 gm/dL (12.0-16.0) L 01/17/17 07:00 Hct 33.5 % (36.0-48.0) L 01/17/17 07:00 MCV 86.8 fL (80.0-105.0) 01/17/17 07:00 MCH 28.5 pg (25.0-35.0) 01/17/17 07:00 MCHC 32.8 g/dl (31.0-37.0) 01/17/17 07:00 RDW 13.0 % (11.5-14.5) 01/17/17 07:00 Plt Count 372 10^3/uL (120.0-450.0) 01/17/17 07:00 MPV 9.4 fl (7.0-11.0) 01/17/17 07:00 Gran % 79.3 % (50.0-68.0) H 01/17/17 07:00 Lymph % (Auto) 13.2 % (22.0-35.0) L 01/17/17 07:00 [place] % (Auto) 5.4 % (1.0-6.0) 01/17/17 07:00 Eos % (Auto) 1.9 % (1.5-5.0) 01/17/17 07:00 Baso % (Auto) 0.2 % (0.0-3.0) 01/17/17 07:00 Gran # 9.96 (1.4-6.5) H 01/17/17 07:00 Lymph # 1.7 (1.2-3.4) 01/17/17 07:00 [place] # 0.7 (0.1-0.6) H 01/17/17 07:00 Eos # 0.2 (0.0-0.7) 01/17/17 07:00 Baso # 0.03 K/mm3 (0.0-2.0) 01/17/17 07:00 Sodium 139 mmol/L (132-148) 01/17/17 07:00 Potassium 3.4 mmol/L (3.6-5.0) L 01/17/17 07:00 Chloride 105 mmol/L (98-107) 01/17/17 07:00 Carbon Dioxide 27 mmol/L (21-33) 01/17/17 07:00 Anion Gap 10 (10-20) 01/17/17 07:00 BUN 4 mg/dL (7-21) L 01/17/17 07:00 Creatinine 0.6 mg/dL (0.5-1.4) 01/17/17 07:00 Est GFR ( Amer) > 60 01/17/17 07:00 Est GFR (Non-Af Amer) > 60 01/17/17 07:00 Random Glucose 82 mg/dL (70-110) 01/17/17 07:00 Hemoglobin A1c 5.6 % (4.2-6.5) 01/16/17 07:00 Calcium 8.7 mg/dL (8.4-10.5) 01/17/17 07:00 Iron < 10 ug/dL (45-180) L 01/16/17 07:00 TIBC 276 ug/dL (265-497) 01/16/17 07:00 % Saturation Office Assistant 01/16/17 07:00 Ferritin 35.0 ng/mL 01/16/17 07:00 Total Bilirubin 0.6 mg/dL (0.2-1.3) 01/17/17 07:00 AST 27 U/L (15-39) 01/17/17 07:00 ALT 24 U/L (7-56) 01/17/17 07:00 Alkaline Phosphatase 60 U/L (38-133) 01/17/17 07:00 Total Protein 6.5 g/dL (5.8-8.3) 01/17/17 07:00 Albumin 3.3 g/dL (3.0-4.8) 01/17/17 07:00 Globulin 3.2 gm/dL 01/17/17 07:00 Albumin/Globulin Ratio 1.0 (1.1-1.8) L 01/17/17 07:00 Triglycerides 31 mg/dL (35-160) L 01/16/17 07:00 Cholesterol 76 mg/dL (130-200) L 01/16/17 07:00 LDL Cholesterol Direct 35 mg/dL (0-129) 01/16/17 07:00 HDL Cholesterol 30 mg/dL (29-60) 01/16/17 07:00 Vitamin B12 775 pg/mL (239-931) 01/16/17 07:00 Folate 9.4 ng/mL 01/16/17 07:00 Free T4 1.73 ng/dL (0.78-2.19) 01/17/17 10:20 TSH 3rd Generation 0.73 mIU/mL (0.46-4.68) 01/17/17 10:20 Urine Color Yellow (YELLOW) 01/16/17 01:40 Urine Appearance Sl cloudy (CLEAR) 01/16/17 01:40 Urine pH 6.5 (4.7-8.0) 01/16/17 01:40 Ur Specific [place] 1.025 (1.005-1.035) 01/16/17 01:40 Urine Protein Trace mg/dL (<30 mg/dL) H 01/16/17 01:40 Urine Glucose (UA) Negative mg/dL (NEGATIVE) 01/16/17 01:40 Urine Ketones Negative mg/dL (NEGATIVE) 01/16/17 01:40 Urine Blood Negative (NEGATIVE) 01/16/17 01:40 Urine Nitrate Negative (NEGATIVE) 01/16/17 01:40 Urine Bilirubin Negative (NEGATIVE) 01/16/17 01:40 Urine Urobilinogen 1.0 E.U./dL (<1 E.U./dL) H 01/16/17 01:40 Ur Leukocyte Esterase Trace Kush/uL (NEGATIVE) H 01/16/17 01:40 Urine RBC 2 - 5 /hpf (0-2) 01/16/17 01:40 Urine WBC 1 - 3 /hpf (0-6) 01/16/17 01:40 Ur Epithelial Cells 6 - 8 /hpf (0-5) 01/16/17 01:40 Amorphous Sediment Moderate 01/16/17 01:40 Urine Bacteria Large (NEG) 01/16/17 01:40 Urine HCG, Qual Negative (NEGATIVE) 01/16/17 01:40 Urine Opiates Screen Negative (NEGATIVE) 01/16/17 01:40 Urine Methadone Screen Negative (NEGATIVE) 01/16/17 01:40 Ur Barbiturates Screen Negative (NEGATIVE) 01/16/17 01:40 Ur Phencyclidine Scrn Negative (NEGATIVE) 01/16/17 01:40 Ur Amphetamines Screen Negative (NEGATIVE) 01/16/17 01:40 U Benzodiazepines Scrn Negative (NEGATIVE) 01/16/17 01:40 U Oth Cocaine Metabols Negative (NEGATIVE) 01/16/17 01:40 U Cannabinoids Screen Negative (NEGATIVE) 01/16/17 01:40 Hepatitis A IgM Ab Negative (NEGATIVE) 01/16/17 07:00 Hep Bs Antigen Negative (NEGATIVE) 01/16/17 07:00 Hep B Core IgM Ab Negative (NEGATIVE) 01/16/17 07:00 Hepatitis C Antibody Negative (NEGATIVE) 01/16/17 07:00 HIV 1&2 Ag/Ab, 4th Gen Nonreactive (Nonreactive) 01/17/17 07:00 - Hospital Course Hospital Course: Attending: Dr. Lopez Admit date- 01/16 Left ama- 01/17 Consults Cornelius Vela/Harjit Discharge dx 1. Breast mastitis/abscess Procedures- I/D No complications Pt left ama HPI: see h/p Labs: see lab data Hospital course: This patient is a 21 year old female w/ no PMHx who is coming in for a 1 day history of R breast pain, with pus draining out. The patient is complaining of a subjective fever, with no other symptoms. Breast is exquisitely tender to the touch and even clothing that touches it hurts it. She denies current fevers/ chills, DAY, CP, SOB, abdominal pain, N/V/D, dysuria/freq/urg, or lower extremity pain/swelling. Sepsis 2/2 to Breast Abscess/Cellulitis -Breast ultrasound ordered; f/u results -showed abscess on U/S -Surgical Consult: Dr. Shields placed; appreciate recs -pt s/p I/D, dressing changed today, clinically improving. -IV Vanco and Unasyn -f/u anaerobic culture results -f/u sx recs. GI/DVT Prophylaxis Heart healthy diet SCD pepcid >>> Pt left AMA DC meds 1. pt given rx for doxy and augmentin however, pt left AMA DC instructions N/A - Date & Time of H&P Date of H&P: 01/16/17 Time of H&P: 02:02 Discharge Exam - Head Exam Head Exam: NORMAL INSPECTION - Eye Exam Eye Exam: EOMI - ENT Exam ENT Exam: Mucous Membranes Moist - Neck Exam Neck exam: Full Rom, Normal Inspection - Respiratory Exam Respiratory Exam: NORMAL BREATHING PATTERN, UNREMARKABLE - Cardiovascular Exam Cardiovascular Exam: +S1, +S2 - GI/Abdominal Exam GI & Abdominal Exam: Normal Bowel Sounds - Extremities Exam Extremities exam: full ROM, normal inspection - Neurological Exam Neurological exam: Alert, Oriented x3 - Psychiatric Exam Psychiatric exam: Normal Affect, Normal Mood - Skin Additional comments: Breast dressing changed, clean dry intact minimal erythema Discharge Plan - Follow Up Plan Condition: GOOD Disposition: AGAINST MEDICAL ADVICE <Al Lopez - Last Filed: 01/18/17 18:27> Provider - Provider Date of Admission: 01/16/17 01:37 Attending physician: Al Lopez MD Hospital Course - Lab Results Lab Results: Micro Results 01/16/17 01:40 Urine Urine Culture - Final Escherichia Coli Enterococcus Faecalis 01/16/17 01:50 Blood-Venous Blood Culture - Preliminary NO GROWTH AFTER 48 HOURS Most Recent Lab Values WBC 12.6 10^3/ul (4.5-11.0) H D 01/17/17 07:00 RBC 3.86 10^6/uL (3.5-6.1) 01/17/17 07:00 Hgb 11.0 gm/dL (12.0-16.0) L 01/17/17 07:00 Hct 33.5 % (36.0-48.0) L 01/17/17 07:00 MCV 86.8 fL (80.0-105.0) 01/17/17 07:00 MCH 28.5 pg (25.0-35.0) 01/17/17 07:00 MCHC 32.8 g/dl (31.0-37.0) 01/17/17 07:00 RDW 13.0 % (11.5-14.5) 01/17/17 07:00 Plt Count 372 10^3/uL (120.0-450.0) 01/17/17 07:00 MPV 9.4 fl (7.0-11.0) 01/17/17 07:00 Gran % 79.3 % (50.0-68.0) H 01/17/17 07:00 Lymph % (Auto) 13.2 % (22.0-35.0) L 01/17/17 07:00 [place] % (Auto) 5.4 % (1.0-6.0) 01/17/17 07:00 Eos % (Auto) 1.9 % (1.5-5.0) 01/17/17 07:00 Baso % (Auto) 0.2 % (0.0-3.0) 01/17/17 07:00 Gran # 9.96 (1.4-6.5) H 01/17/17 07:00 Lymph # 1.7 (1.2-3.4) 01/17/17 07:00 [place] # 0.7 (0.1-0.6) H 01/17/17 07:00 Eos # 0.2 (0.0-0.7) 01/17/17 07:00 Baso # 0.03 K/mm3 (0.0-2.0) 01/17/17 07:00 Sodium 139 mmol/L (132-148) 01/17/17 07:00 Potassium 3.4 mmol/L (3.6-5.0) L 01/17/17 07:00 Chloride 105 mmol/L (98-107) 01/17/17 07:00 Carbon Dioxide 27 mmol/L (21-33) 01/17/17 07:00 Anion Gap 10 (10-20) 01/17/17 07:00 BUN 4 mg/dL (7-21) L 01/17/17 07:00 Creatinine 0.6 mg/dL (0.5-1.4) 01/17/17 07:00 Est GFR ( Amer) > 60 01/17/17 07:00 Est GFR (Non-Af Amer) > 60 01/17/17 07:00 Random Glucose 82 mg/dL (70-110) 01/17/17 07:00 Hemoglobin A1c 5.6 % (4.2-6.5) 01/16/17 07:00 Calcium 8.7 mg/dL (8.4-10.5) 01/17/17 07:00 Iron < 10 ug/dL (45-180) L 01/16/17 07:00 TIBC 276 ug/dL (265-497) 01/16/17 07:00 % Saturation Office Assistant 01/16/17 07:00 Ferritin 35.0 ng/mL 01/16/17 07:00 Total Bilirubin 0.6 mg/dL (0.2-1.3) 01/17/17 07:00 AST 27 U/L (15-39) 01/17/17 07:00 ALT 24 U/L (7-56) 01/17/17 07:00 Alkaline Phosphatase 60 U/L (38-133) 01/17/17 07:00 Total Protein 6.5 g/dL (5.8-8.3) 01/17/17 07:00 Albumin 3.3 g/dL (3.0-4.8) 01/17/17 07:00 Globulin 3.2 gm/dL 01/17/17 07:00 Albumin/Globulin Ratio 1.0 (1.1-1.8) L 01/17/17 07:00 Triglycerides 31 mg/dL (35-160) L 01/16/17 07:00 Cholesterol 76 mg/dL (130-200) L 01/16/17 07:00 LDL Cholesterol Direct 35 mg/dL (0-129) 01/16/17 07:00 HDL Cholesterol 30 mg/dL (29-60) 01/16/17 07:00 Vitamin B12 775 pg/mL (239-931) 01/16/17 07:00 Folate 9.4 ng/mL 01/16/17 07:00 Free T4 1.73 ng/dL (0.78-2.19) 01/17/17 10:20 TSH 3rd Generation 0.73 mIU/mL (0.46-4.68) 01/17/17 10:20 Urine Color Yellow (YELLOW) 01/16/17 01:40 Urine Appearance Sl cloudy (CLEAR) 01/16/17 01:40 Urine pH 6.5 (4.7-8.0) 01/16/17 01:40 Ur Specific [place] 1.025 (1.005-1.035) 01/16/17 01:40 Urine Protein Trace mg/dL (<30 mg/dL) H 01/16/17 01:40 Urine Glucose (UA) Negative mg/dL (NEGATIVE) 01/16/17 01:40 Urine Ketones Negative mg/dL (NEGATIVE) 01/16/17 01:40 Urine Blood Negative (NEGATIVE) 01/16/17 01:40 Urine Nitrate Negative (NEGATIVE) 01/16/17 01:40 Urine Bilirubin Negative (NEGATIVE) 01/16/17 01:40 Urine Urobilinogen 1.0 E.U./dL (<1 E.U./dL) H 01/16/17 01:40 Ur Leukocyte Esterase Trace Kush/uL (NEGATIVE) H 01/16/17 01:40 Urine RBC 2 - 5 /hpf (0-2) 01/16/17 01:40 Urine WBC 1 - 3 /hpf (0-6) 01/16/17 01:40 Ur Epithelial Cells 6 - 8 /hpf (0-5) 01/16/17 01:40 Amorphous Sediment Moderate 01/16/17 01:40 Urine Bacteria Large (NEG) 01/16/17 01:40 Urine HCG, Qual Negative (NEGATIVE) 01/16/17 01:40 Urine Opiates Screen Negative (NEGATIVE) 01/16/17 01:40 Urine Methadone Screen Negative (NEGATIVE) 01/16/17 01:40 Ur Barbiturates Screen Negative (NEGATIVE) 01/16/17 01:40 Ur Phencyclidine Scrn Negative (NEGATIVE) 01/16/17 01:40 Ur Amphetamines Screen Negative (NEGATIVE) 01/16/17 01:40 U Benzodiazepines Scrn Negative (NEGATIVE) 01/16/17 01:40 U Oth Cocaine Metabols Negative (NEGATIVE) 01/16/17 01:40 U Cannabinoids Screen Negative (NEGATIVE) 01/16/17 01:40 Hepatitis A IgM Ab Negative (NEGATIVE) 01/16/17 07:00 Hep Bs Antigen Negative (NEGATIVE) 01/16/17 07:00 Hep B Core IgM Ab Negative (NEGATIVE) 01/16/17 07:00 Hepatitis C Antibody Negative (NEGATIVE) 01/16/17 07:00 HIV 1&2 Ag/Ab, 4th Gen Nonreactive (Nonreactive) 01/17/17 07:00 Attending/Attestation - Attestation I have reviewed all pertinent clinical information, including history, physical exam and plan: Yes Notes (Text): DC SUMMARY for 01/18/17 21 year old female who was admitted for breast cellulitis/abscess. She was started on iv antibiotics and seen by surgery and ID. She is s/p I and D. Cultures were pending. She was examined with female nurse equities trader. Packing was removed earlier by surgery. Leukocytosis improved. She reported chronic mild anemia and was advised to follow up with pmd. Potassium was repleted for hypokalemia. She was debating to sign out AMA during the day. After discussion with ID she was written script for augmentin and doxycycline in case she signs out AMA. Apparently she signed out AMA later in the evening (see nursing note and house doctor note). Al Lopez MD Hospitalist.
== END 2017-01-17 19:15 | disposition left against medical advice (07) | DRG 872 ==
LOC: ED 22:32 → ERH 01-16 01:37 → 5RNO 01-16 03:59
PROVIDERS: ADMIT Internal Medicine; ATTEND Internal Medicine
PROC: 0H9T0ZZ Drainage of Right Breast, Open Approach (ICD-10-PCS; principal; 2017-01-16 09:00)
DX: A41.9 Sepsis, unspecified organism (principal); N61.1 Abscess of the breast and nipple; E87.6 Hypokalemia; D64.9 Anemia, unspecified